=== PATIENT | male | born 1985 | race Caucasian/White ===

== ENCOUNTER 2018-08-25 14:45 | Observation (INO) ==
[2018-08-25] MEDS ORDERED: Isovue-370 500 ML INFUS..BTL IV ONE (15:35)
--- NOTE | 2018-08-25 15:41 | Emergency Department Note ---
Disposition Clinical Impression: Incidental lung nodule, greater than or equal to 8mm, Anemia Disposition: Admitted As Inpatient Condition: Fair SOB HPI - General Chief Complaint: ED Shortness of Breath/Dyspnea Stated Complaint: TYLER, Rib Pain Time Seen by Provider: 08/25/18 15:00 Source: patient Limitations: no limitations Vital Signs Reviewed: Yes - History of Present Illness Patient is a 33-year-old male with no significant reported past medical history who presents to the emergency department with chief complaint of shortness of breath with exertion and left-sided chest pain. He states his symptoms have been ongoing for approximately 3 weeks. He states that symptoms started with a cough which was productive of orange sputum and he also had one episode of hemoptysis. He was evaluated at the emergency department at that time and was found to have evidence of sinusitis on head CT. He said since then his cough has continued and is worse in the mornings when he wakes up. He says that the cough has caused rib pain on the left side. His chest pain is described as a cramping sensation worse with deep breathing and coughing. He states that it has radiated to his jaw one time and radiates to the inner aspect of his left arm as well. He has tried Tylenol for the chest pain which has provided mild relief. He states that he was seen as an outpatient after his last ED visit and was evaluated for "low blood count" as well as left lower extremity swelling. He states that he underwent d-dimer testing and ultrasound at [facility] last week but there was no evidence of DVT. Patient is a previous smoker, with a 16 year 1-1/2 pack per day smoking history. Patient quit smoking approximately 9 months ago as he began having shortness of breath with exertion. He denies any wheezing and denies any history of COPD. He denies any history of cancer, weight loss, recent surgery, or any recent periods of immobilization. He has never had any venous clots in the past. On review of systems he denies any fevers, abdominal pain, diarrhea, constipation, or urinary complaints. He does admit to subjective chills, diaphoresis, chronic headaches, palpitations, and shortness of breath with exertion. Pt Subjective Complaint: shortness of breath, cough, pain with inspiration Onset (ago): week(s) (3 weeks) Context: occurred during exertion Severity: moderate Consistency/Duration: constant Improves with: rest Worsens with: exertion, coughing, inspiration Associated symptoms: Reports: pain with inspiration, cough, sputum production, lower extremity pain, hemoptysis, diaphoresis Treatment prior to arrival: none Cough present: Yes Cough Description: Productive Cough Frequency: Intermittent Sputum production: Yes Sputum Amount: Small Sputum Color: Yellow, Blood Streaked - Related Data Home oxygen amount: none Home Medications Medication Instructions Recorded Confirmed Folic Acid 1 mg PO DAILY 02/22/17 08/25/18 Cyanocobalamin (Vitamin B-12) 1,000 mcg PO DAILY 08/23/17 08/25/18 [Vitamin B12] Omeprazole [PriLOSEC] 40 mg PO DAILY 08/25/18 08/25/18 Allergies Allergy/AdvReac Type Severity Reaction Status Date / Time ketorolac [From Toradol] Allergy Unknown Hives Verified 06/16/18 13:06 vancomycin Allergy Unknown Anaphylaxis Verified 06/16/18 13:06 acetaminophen [From Percocet] Allergy Swelling Verified 06/16/18 13:06 of Lip/Tongue/Throat bupropion [From Wellbutrin] Allergy Difficulty Verified 06/16/18 13:06 Breathing niacin Allergy Rash Verified 06/16/18 13:06 Oxycodone [From Percocet] Allergy Swelling Verified 06/16/18 13:06 of Lip/Tongue/Throat sulfamethoxazole Allergy Rash Verified 06/16/18 13:06 [From Bactrim] sumatriptan [From Imitrex] Allergy Headache Verified 06/16/18 13:06 tetracycline [Tetracycline] Allergy Rash Verified 06/16/18 13:06 trimethoprim [From Bactrim] Allergy Rash Verified 06/16/18 13:06 Review of Systems: As Per HPI Past Medical History - Past Medical History Medical history: Reports: GERD, hypertension, migraine Surgical history: Reports: non-contributory Psychiatric history: Reports: anxiety, PTSD, prior suicide attempt - Social History Smoking Status: Former smoker Smokeless Tobacco Status: No Alcohol use: Reports: none Drug use: Reports: none Physical Exam Constitutional: Thin, patient resting comfortably in bed in no acute distress. No active shortness of breath or audible wheezing. No current cough. Oropharynx: Oropharynx is clear without any lesions. There is no erythema or exudate present. No tonsillar swelling. Neck: Soft, nontender, no cervical lymphadenopathy Cardiovascular: Normal S1 and S2 heart sounds. No murmurs Respiratory: Clear to auscultation in all lung cramer. No wheezes, rales, or rhonchi. Chest: Tenderness to palpation overlying the aspect of the lower left ribs. Abdomen: Mild epigastric tenderness on deep palpation, otherwise soft, nontender, with active bowel sounds. Extremities: No evidence of pedal edema. Course Course Narrative: Reviewed labs, patient's hemoglobin has dropped to 9.4 from a previous value of 14.0 obtained in October 2017. All previous readings have been within normal range. Patient does admit to dark black stools for a 1 week period approximately 4 months ago. Since then he says his stools have been normal. He says his most recent stools have been light brown to orange in color. Denies any diarrhea, but states that at times his stool may be soft. Performed rectal exam and collected stool for occult blood testing. Normal rectal sphincter tone on examination with light brown stool extracted after digital rectal exam. Occult blood testing was negative. Obtained CT chest which showed evidence for a spiculated nodule in the right lower lobe. There is concern for Tate genic carcinoma and a PET-CT scan is recommended. Even patient's chest pain, shortness of breath, and CT findings will speak with hospitalist and recommend admission for observation and possible further consultation and workup. Spoke to patient, informed him of all lab results and imaging. Patient understands there is a nodule on the right lung that warrants further testing with PET-CT. to hospice regarding observation admission, hospitalist accepted the patient. Vital Signs Temperature 98.2 F 08/25/18 14:48 Pulse Rate 86 08/25/18 14:48 Respiratory Rate 18 08/25/18 14:48 Blood Pressure 146/93 08/25/18 14:48 O2 Sat by Pulse Oximetry 99 08/25/18 14:48 Temperature 98.2 F 08/25/18 14:48 Pulse Rate 60 08/25/18 18:20 Respiratory Rate 20 08/25/18 19:33 Blood Pressure 124/88 08/25/18 19:33 O2 Sat by Pulse Oximetry 100 08/25/18 18:20 Oxygen Delivery Oxygen Delivery Room Air Shortness of Breath/Dyspnea - MDM Narrative Medical decision making narrative: 33-year-old male presented to the ED with cough, hemoptysis, shortness of breath, and chest pain. On workup he was found to have microcytic anemia with a decrease in hemoglobin compared to prior labs from October 2017. Occult stool blood testing was negative. EKG and troponin were negative for any acute ST elevation or cardiac injury perspective. CTA chest showed a significant finding of a spiculated lung nodule in the right lower lobe which warrants further workup. Patient will be admitted to the hospital for observation and possible further workup - Lab Data Lab results reviewed: Yes I reviewed the patient's lab results. Result diagrams: 08/25/18 15:54 08/25/18 15:54 Lab Results 08/25/18 08/25/18 08/25/18 Range/Units 15:54 15:54 15:54 WBC 4.7 (4.3-11.1) K/mcL RBC 3.89 L (4.19-5.50) M/mcL Hgb 9.4 L (12.9-16.9) g/dL Hct 31.5 L (37.5-50.1) % MCV 81.0 L (83.0-100.0) fL MCH 24.2 L (28.0-33.3) pg MCHC 29.8 L (31.6-35.5) g/dL RDW 15.5 H (11.5-14.5) % Plt Count 154 (140-400) K/mcL MPV 12.4 (9.4-12.4) fL Immature Gran % 0.4 (0-4) % Seg Neutrophils % 57.7 % Lymphocytes % 30.6 % Monocytes % 9.0 % Eosinophils % 1.7 % Basophils % 0.6 % Neutrophils # 2.7 (1.6-8.9) K/mcL Lymphocytes # 1.4 (0.6-4.6) K/mcL Monocytes # 0.4 (0.0-1.3) K/mcL Eosinophils # 0.1 (0.0-0.6) K/mcL Basophils # 0.0 (0.0-0.2) K/mcL PT 11.9 (9.4-12.1) Seconds INR 1.1 Sodium 139 (136-145) mEq/L Potassium 4.1 (3.5-5.1) mEq/L Chloride 106 (98-107) mEq/L Carbon Dioxide 26 (23-29) mEq/L BUN 13 (6-20) mg/dL Creatinine 0.80 (0.70-1.30) mg/dL Est GFR ( Amer) > 60 (> 60) Est GFR (Non-Af Amer) > 60 (> 60) BUN/Creatinine Ratio 16 (6-26) Glucose 96 (70-105) mg/dL Calculated Osmolality 288 (280-300) Calcium 9.1 (8.6-10.3) mg/dL Total Bilirubin 0.4 (0.3-1.0) mg/dL Direct Bilirubin 0.1 (0.0-0.2) mg/dL Indirect Bilirubin 0.3 (0.0-1.2) mg/dL AST 21 (13-39) Units/L ALT 15 (7-52) Units/L Alkaline Phosphatase 72 (34-104) Units/L Troponin I < 0.03 (< 0.04) ng/mL Serum Total Protein 6.5 (6.4-8.9) g/dL Albumin 4.2 (3.5-5.7) g/dL Globulin 2.3 L (2.4-3.5) g/dL Albumin/Globulin Ratio 1.8 (1.1-2.2) Stool Occult Bld Scrn (Negative) Blood Type Antibody Screen 08/25/18 08/25/18 Range/Units 16:34 16:36 WBC (4.3-11.1) K/mcL RBC (4.19-5.50) M/mcL Hgb (12.9-16.9) g/dL Hct (37.5-50.1) % MCV (83.0-100.0) fL MCH (28.0-33.3) pg MCHC (31.6-35.5) g/dL RDW (11.5-14.5) % Plt Count (140-400) K/mcL MPV (9.4-12.4) fL Immature Gran % (0-4) % Seg Neutrophils % % Lymphocytes % % Monocytes % % Eosinophils % % Basophils % % Neutrophils # (1.6-8.9) K/mcL Lymphocytes # (0.6-4.6) K/mcL Monocytes # (0.0-1.3) K/mcL Eosinophils # (0.0-0.6) K/mcL Basophils # (0.0-0.2) K/mcL PT (9.4-12.1) Seconds INR Sodium (136-145) mEq/L Potassium (3.5-5.1) mEq/L Chloride (98-107) mEq/L Carbon Dioxide (23-29) mEq/L BUN (6-20) mg/dL Creatinine (0.70-1.30) mg/dL Est GFR ( Amer) (> 60) Est GFR (Non-Af Amer) (> 60) BUN/Creatinine Ratio (6-26) Glucose (70-105) mg/dL Calculated Osmolality (280-300) Calcium (8.6-10.3) mg/dL Total Bilirubin (0.3-1.0) mg/dL Direct Bilirubin (0.0-0.2) mg/dL Indirect Bilirubin (0.0-1.2) mg/dL AST (13-39) Units/L ALT (7-52) Units/L Alkaline Phosphatase (34-104) Units/L Troponin I (< 0.04) ng/mL Serum Total Protein (6.4-8.9) g/dL Albumin (3.5-5.7) g/dL Globulin (2.4-3.5) g/dL Albumin/Globulin Ratio (1.1-2.2) Stool Occult Bld Scrn Negative (Negative) Blood Type O POSITIVE Antibody Screen NEGATIVE - Radiology Data Radiology results reviewed: Yes I reviewed the patient's radiology results. - EKG Data EKG attestation: Yes I reviewed and interpreted this EKG. EKG results narrative: ECG shows sinus rhythm with a heart rate of 59. There is early R-wave progression. No gross ST elevations. EKG shows normal: Reports: sinus rhythm Rate: Reports: normal Rhythm: Reports: NSR S.B.A.R. - S.B.A.R. Situation: Demographics Background: Presenting Complaint, Relevant PMH, Meds, & Allergies Assessment: Vital Signs, Course and respsone to treatment, Exam Concerns, Pertinant Lab Results Recommendation: Recommendation based on pending studies, treatments, or consults S.B.A.RIsha Report Given to: Dr. Byron Junior Repor Time: 18:45 Attestation Statement - Attestation Attestation: I examined this patient and my medical decision-making was reviewed with the Resident Physician. I agree with the documented findings, disposition and treatment plan as described except to the extent set forth below. Findings consistent with spiculated chest mass. We will admit for oncological evaluation and definitive management of chest pain related to spiculated lung nodule.
[2018-08-25 16:16] LABS: Basophils % 0.6 %; Eosinophils # 0.1 K/mcL (0.0-0.6); Eosinophils % 1.7 %; Hematocrit 31.5 % (37.5-50.1); Hemoglobin 9.4 g/dL (12.9-16.9); Immature Granulocytes % 0.4 % (0-4); Lymphocytes # 1.4 K/mcL (0.6-4.6); Lymphocytes % 30.6 %; Mean Corpuscular HGB Conc 29.8 g/dL (31.6-35.5); Mean Corpuscular Hemoglobin 24.2 pg (28.0-33.3); Mean Platelet Volume 12.4 fL (9.4-12.4); Monocytes # 0.4 K/mcL (0.0-1.3); Neutrophils # 2.7 K/mcL (1.6-8.9); Platelet Count 154 K/mcL (140-400); Red Blood Count 3.89 M/mcL (4.19-5.50); Red Cell Distribution Width 15.5 % (11.5-14.5); Segmented Neutrophils % 57.7 %
[2018-08-25 16:33] LABS: BUN/Creatinine Ratio 16 (6-26); Blood Urea Nitrogen 13 mg/dL (6-20); Calcium 9.1 mg/dL (8.6-10.3); Carbon Dioxide 26 mEq/L (23-29); Chloride 106 mEq/L (98-107); Glucose 96 mg/dL (70-105); Osmolality,Calculated 288 (280-300); Potassium 4.1 mEq/L (3.5-5.1); Sodium 139 mEq/L (136-145); Troponin I < 0.03 ng/mL (< 0.04); eGFR For Non-African Americans > 60 (> 60)
[2018-08-25 16:43] LABS: Alanine Aminotransferase 15 Units/L (7-52); Albumin 4.2 g/dL (3.5-5.7); Albumin/Globulin Ratio 1.8 (1.1-2.2); Alkaline Phosphatase 72 Units/L (34-104); Aspartate Amino Transferase 21 Units/L (13-39); Bilirubin,Direct 0.1 mg/dL (0.0-0.2); Bilirubin,Indirect 0.3 mg/dL (0.0-1.2); Bilirubin,Total 0.4 mg/dL (0.3-1.0); Globulin 2.3 g/dL (2.4-3.5); Total Protein 6.5 g/dL (6.4-8.9)
[2018-08-25 16:51] LABS: INR 1.1; Prothrombin Time 11.9 Seconds (9.4-12.1)
[2018-08-25] MEDS ORDERED: Naloxone 0.4 MG/ML INJ IVP PRN (19:13)
--- NOTE | 2018-08-25 19:33 | Internal Med History&Physical ---
Date of Encounter: 08/25/18 Time of Encounter: 19:31 Internal Medicine - H&P: HPI Chief complaint: hemoptysis Admitted From: Emergency Dept Plans for Post Hospital Care: Home History of present illness: Mr. Holland is a 33 year old male with no significant reported past medical history who presents to the emergency department with chief complaint of shortness of breath with exertion and pleuritic chest pain. This has been going on for a few weeks or so. He reports hemoptysis. He was seen in our ED about 6 weeks ago and was diagnosed with sinusitis. He did describe what sounds like hemoptysis then. a CXR showed no acute process. His main concern coming into the ED was the shortness of breath but he was stable in the ED. He has been losing significant amount of weight but not sure how much but he can tell from his clothes. The patient had work up in the ED. Labs showed acute blood loss anemia with Hgb of 9.4 with previously around 14 earlier this year. Had a CTA chest which showed a spiculated lung nodule on the right. He denies any fevers, abdominal pain, diarrhea, constipation, or urinary complaints. He does admit to subjective chills, diaphoresis, chronic headaches, palpitations, and shortness of breath with exertion. Past Med Surg Social Fam HX - Past Medical History Medical history: GERD, hypertension, migraine Additional medical history: hx MRSA,heart defect irregular heartbeat,bilateral inguinal hernia,hypoglycemic,ibs,vitamin d deficiency Psychiatric history: anxiety, PTSD, prior suicide attempt - Past Surgical History Surgical History: non-contributory Additional surgical history: broken jaw repair,lazy eye surgery,bilateral inguinal hernia repair,right hand orif - Social History Smoking Status: Former smoker Smokeless Tobacco Status: No Alcohol use: none Drug use: none - Family History Maternal Grandmother Hx Family Cardiac Disorders: Yes (VT) Hx Family Endocrine Disorder: Yes (DM) Internal Medicine - H&P: Meds Folic Acid 1 mg PO DAILY 02/22/17 [History] Cyanocobalamin (Vitamin B-12) [Vitamin B12] 1,000 mcg PO DAILY 08/23/17 [History] Omeprazole [PriLOSEC] 40 mg PO DAILY 08/25/18 [History] Allergy/AdvReac Type Severity Reaction Status Date / Time ketorolac [From Toradol] Allergy Unknown Hives Verified 06/16/18 13:06 vancomycin Allergy Unknown Anaphylaxis Verified 06/16/18 13:06 acetaminophen [From Percocet] Allergy Swelling Verified 06/16/18 13:06 of Lip/Tongue/Throat bupropion [From Wellbutrin] Allergy Difficulty Verified 06/16/18 13:06 Breathing niacin Allergy Rash Verified 06/16/18 13:06 Oxycodone [From Percocet] Allergy Swelling Verified 06/16/18 13:06 of Lip/Tongue/Throat sulfamethoxazole Allergy Rash Verified 06/16/18 13:06 [From Bactrim] sumatriptan [From Imitrex] Allergy Headache Verified 06/16/18 13:06 tetracycline [Tetracycline] Allergy Rash Verified 06/16/18 13:06 trimethoprim [From Bactrim] Allergy Rash Verified 06/16/18 13:06 All Systems PM: A 10-system review of systems was performed and is negative for pertinent findings except as documented above in the HPI. Review of systems: All systems reviewed are negative except for as mentioned above - Constitutional Vitals: Temp Pulse Resp BP Pulse Ox 98.2 F 68 22 122/85 100 08/25/18 14:48 08/25/18 16:02 08/25/18 16:02 08/25/18 16:02 08/25/18 16:02 Exam: GEN: NAD HEENT: AT, NC, No cyanosis, oral mucosa is moist, No JVD Lymphatics: No lymphadenoapthy Eyes: Extrocular muscles intact, anicteric CVS:RRR. S1, S2, No m/r/g RESP: CTAB ABD: Soft, NT, ND, +BS EXT: No edema, No rashes, 2+ DP NEURO: Nonfocal, CN II-XII intact, No focal motor or sensory deficits Psych: Cooperative, Not anxious or depressed Internal Med - H&P Results - Labs CBC & Chem 7: 08/25/18 15:54 08/25/18 15:54 Labs: Short CBC 08/25/18 Range/Units 15:54 WBC 4.7 (4.3-11.1) K/mcL Hgb 9.4 L (12.9-16.9) g/dL Hct 31.5 L (37.5-50.1) % Plt Count 154 (140-400) K/mcL Neutrophils # 2.7 (1.6-8.9) K/mcL BMP 08/25/18 15:54 Sodium 139 Potassium 4.1 Chloride 106 Carbon Dioxide 26 BUN 13 Creatinine 0.80 Glucose 96 Calcium 9.1 Cardiac Enzymes 08/25/18 Range/Units 15:54 Troponin I < 0.03 (< 0.04) ng/mL Liver Function 08/25/18 Range/Units 15:54 Total Bilirubin 0.4 (0.3-1.0) mg/dL Direct Bilirubin 0.1 (0.0-0.2) mg/dL AST 21 (13-39) Units/L ALT 15 (7-52) Units/L Alkaline Phosphatase 72 (34-104) Units/L Albumin 4.2 (3.5-5.7) g/dL - Impressions ITS Impressions Chest CTA 08/25/18 15:35 IMPRESSION: 1. Indeterminate spiculated nodule lateral basal segment right lower lobe; primary bronchogenic carcinoma must be considered and PET-CT correlation is recommended. 2. Nonspecific ground-glass nodules right middle lobe and lingula left upper lobe must be followed with unenhanced CT in 6-12 months to ensure stability. 3. No pulmonary embolism. 4. Benign pericardial cyst is noted. D/ / Jacques Duarte / Jacques Duarte Interpreting Provider: Jacques Duarte - Assessment and plan (1) Lung nodule Current Visit: Yes Status: Acute Assessment and plan: Spiculated and suspicious for a malignancy. Has significant smoking history. Will consult pulm. NPO after midnight. (2) Hemoptysis Current Visit: Yes Status: Acute Assessment and plan: likely from the spiculated lung nodule. Will monitor. (3) Acute blood loss anemia Current Visit: Yes Status: Acute Assessment and plan: FOBT neg in ED. likely blood loss from hemoptysis. Hgb 9.4. was 14 in October. Samuel check iron studies. (4) DVT prophylaxis Current Visit: Yes Status: Acute Assessment and plan: scds - Time Spent With Patient Total time spent is greater than 50% in coordination of care (as documented) at patient's floor/unit and/or counseling patient:
[2018-08-25] MEDS: Acetaminophen 325 MG TABLET PO PRN (21:58)
[2018-08-26 03:43] LABS: Basophils % 0.8 %; Eosinophils # 0.1 K/mcL (0.0-0.6); Eosinophils % 3.2 %; Hematocrit 30.9 % (37.5-50.1); Hemoglobin 9.4 g/dL (12.9-16.9); Immature Granulocytes % 0.3 % (0-4); Lymphocytes # 1.4 K/mcL (0.6-4.6); Lymphocytes % 36.7 %; Mean Corpuscular HGB Conc 30.4 g/dL (31.6-35.5); Mean Corpuscular Hemoglobin 24.3 pg (28.0-33.3); Mean Corpuscular Volume 79.8 fL (83.0-100.0); Mean Platelet Volume 12.2 fL (9.4-12.4); Monocytes # 0.4 K/mcL (0.0-1.3); Monocytes % 11.7 %; Neutrophils # 1.8 K/mcL (1.6-8.9); Platelet Count 153 K/mcL (140-400); Red Blood Count 3.87 M/mcL (4.19-5.50); Red Cell Distribution Width 15.7 % (11.5-14.5); Segmented Neutrophils % 47.3 %
[2018-08-26 03:59] LABS: BUN/Creatinine Ratio 18 (6-26); Blood Urea Nitrogen 14 mg/dL (6-20); Calcium 8.9 mg/dL (8.6-10.3); Carbon Dioxide 27 mEq/L (23-29); Chloride 107 mEq/L (98-107); Glucose 100 mg/dL (70-105); Osmolality,Calculated 287 (280-300); Sodium 138 mEq/L (136-145); eGFR For Non-African Americans > 60 (> 60)
[2018-08-26 04:01] LABS: % Iron Saturation 3 % (20-55); Iron 17 mcg/dL (65-175); Transferrin 361 mg/dL (203-362)
[2018-08-26 04:25] LABS: Folate 15.6 ng/mL (3.0-16.0)
[2018-08-26 04:28] LABS: Ferritin < 8 ng/mL (20-250)
--- NOTE | 2018-08-26 06:30 | Pulmonology Consult Note ---
Date of Encounter: 08/26/18 Time of Encounter: 06:29 Assessment and Plan (1) Multiple pulmonary nodules Current Visit: Yes Status: Acute Although the patient is a former smoker I doubt that this represents a malignant process. It is much more likely this is a infectious etiology or inflammatory such as an undiagnosed connective tissue disease. I recommend treating with antimicrobials such as Levaquin for 7 days Patient will need pulmonary follow-up in 2-4 weeks from the time of discharge was a repeat CT scan in 4-6 weeks At that time we will determine if nodule is growing regarding a CT-guided biopsy Bronchoscopy would add little diagnostic utility in this situation outside of looking for an infectious etiology and for this reason would recommend holding off on bronchoscopy patient should have blood cultures and sputum cultures drawn as well as a respiratory infection panel I will start inflammatory workup for connective tissue diseases in the hospital (2) Asthma with acute exacerbation Current Visit: Yes Status: Acute Start Symbicort 160/4.52 puffs twice a day She be discharged with her rescue inhaler Recommend 5 day course of prednisone 40 mg by mouth We will check IgE level Patient pulmonary follow-up for optimization of obstructive lung disease which may be complicated by chronic bronchitis Qualifiers: Asthma severity: unspecified severity Qualified Code(s): J45.901 - Unspecified asthma with (acute) exacerbation (3) Hemoptysis Current Visit: Yes Status: Acute This was one episode of blank hemoptysis without subsequent incident. Suspect this is related to infectious etiology with bronchitis I expressed to the patient that he coughs up another episode of teaspoon of bright red blood or more he should go to the emergency room at once patient expressed understanding and agreement (4) Chronic sinusitis Current Visit: Yes Status: Acute Patient will need to be prescribed fluticasone 1-2 sprays in each nostril daily and should have scheduled saline rinse will need to have outpatient follow-up with consideration of ENT evaluation Qualifiers: Sinusitis location: unspecified location Qualified Code(s): J32.9 - Chronic sinusitis, unspecified (5) Anemia Current Visit: Yes Status: Acute Workup per primary team this is not related to her lung etiology as far as I can tell at this time certainly not the amount of the blood that he coughed up 1 month ago Pulmonary will sign off he will need outpatient pulmonary follow-up either here in [place] or in [place] where we see patients thank you for this consultation please call with any questions Qualifiers: Qualified Code(s): D64.9 - Anemia, unspecified History of Present Illness Consult date: 08/26/18 Requesting physician: Radha Graff Reason for consult: abnormal CXR/CT Chief complaint: Chest pain History of present illness: This is a very pleasant 33-year-old gentleman with a past medical history of asthma and tobacco abuse and chronic sinusitis who presented to the emergency room yesterday after expressing about 24-48 hours of pleuritic type chest pain predominantly on the left. This is complicated over last month by increased cough with sputum production. He states that about 1 month ago he coughed up one episode of bright red blood this was about half a teaspoon since that he is not known his any other blank hemoptysis. He has noticed increase sputum produc tion however sometimes this is orange tint. He was seen within the last month in the emergency room as well for acute sinusitis and treated with Augmentin. He states that over the last 24 hours he has felt febrile but has not had objective fever he also has felt some cold sweats. Denies any sick contacts. He smoked about a pack to a pack and a half a day since early adolescence but quit 9 months ago. 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 He was also noted to have a hemoglobin of 9 which was down from baseline of 14 he has endorsed some dark stools and some intermittent constipation but denies any bleeding from the gums coughing up blood outside of what was mentioned vomiting blood blood in the urine etc. he does endorse some pain in his hands and primarily in the joints of the fingers when he wakes in the morning this is been going on over the last 2 years and sometimes it is associated with redness. In the emergency room CTA was performed which is notable for multiple pulmonary nodules on the right the largest being about a centimeter pulmonary was consulted for further evaluation Past Med Surg Social Fam HX - Past Medical History Medical history: GERD, hypertension, migraine Additional medical history: hx MRSA,heart defect irregular heartbeat,bilateral inguinal hernia,hypoglycemic,ibs,vitamin d deficiency Psychiatric history: anxiety, PTSD, prior suicide attempt - Past Surgical History Surgical History: non-contributory Additional surgical history: broken jaw repair,lazy eye surgery,bilateral inguinal hernia repair,right hand orif - Social History Smoking Status: Former smoker Smokeless Tobacco Status: No Alcohol use: none Drug use: none - Family History Maternal Grandmother Hx Family Cardiac Disorders: Yes ([place]) Hx Family Endocrine Disorder: Yes (DM) Medications and Allergies Folic Acid 1 mg PO DAILY 02/22/17 [History] Cyanocobalamin (Vitamin B-12) [Vitamin B12] 1,000 mcg PO DAILY 08/23/17 [History] Omeprazole [PriLOSEC] 40 mg PO DAILY 08/25/18 [History] Allergy/AdvReac Type Severity Reaction Status Date / Time ketorolac [From Toradol] Allergy Unknown Hives Verified 06/16/18 13:06 vancomycin Allergy Unknown Anaphylaxis Verified 06/16/18 13:06 acetaminophen [From Percocet] Allergy Swelling Verified 06/16/18 13:06 of Lip/Tongue/Throat bupropion [From Wellbutrin] Allergy Difficulty Verified 06/16/18 13:06 Breathing niacin Allergy Rash Verified 06/16/18 13:06 Oxycodone [From Percocet] Allergy Swelling Verified 06/16/18 13:06 of Lip/Tongue/Throat sulfamethoxazole Allergy Rash Verified 06/16/18 13:06 [From Bactrim] sumatriptan [From Imitrex] Allergy Headache Verified 06/16/18 13:06 tetracycline [Tetracycline] Allergy Rash Verified 06/16/18 13:06 trimethoprim [From Bactrim] Allergy Rash Verified 06/16/18 13:06 All Systems: The remainder of the systems were reviewed and are negative Physical Examination Vital Signs: Vital Signs, Last 4 Hours Temp Pulse Resp BP Pulse Ox 08/26/18 04:21 97.7 F 69 16 108/66 99 General appearance: no acute distress Eyes: nonicteric ENT: oropharynx moist Neck: supple Effort: normal Auscultation: bilateral: rhonchi Cardiovascular: regular rate and rhythm Gastrointestinal: normoactive bowel sounds Integumentary: normal Extremities: no cyanosis, no edema, no clubbing Musculoskeletal: no deformities normal mental status, non-focal exam mood appropriate Results - Laboratory Findings CBC and BMP: 08/26/18 03:26 08/26/18 03:26 PT/INR, D-dimer PT 11.9 Seconds (9.4-12.1) 08/25/18 15:54 Abnormal lab findings: Abnormal lab results WBC 3.8 K/mcL (4.3-11.1) L 08/26/18 03:26 RBC 3.87 M/mcL (4.19-5.50) L 08/26/18 03:26 Hgb 9.4 g/dL (12.9-16.9) L 08/26/18 03:26 Hct 30.9 % (37.5-50.1) L 08/26/18 03:26 MCV 79.8 fL (83.0-100.0) L 08/26/18 03:26 MCH 24.3 pg (28.0-33.3) L 08/26/18 03:26 MCHC 30.4 g/dL (31.6-35.5) L 08/26/18 03:26 RDW 15.7 % (11.5-14.5) H 08/26/18 03:26 Iron 17 mcg/dL (65-175) L 08/26/18 03:26 % Saturation 3 % (20-55) L 08/26/18 03:26 Ferritin < 8 ng/mL (20-250) L 08/26/18 03:26 Globulin 2.3 g/dL (2.4-3.5) L 08/25/18 15:54 - Diagnostic Findings Chest x-ray: report reviewed, image reviewed CT scan - chest: report reviewed, image reviewed - Clinical Findings Intake & Output: Intake & Output 08/25/18 08/25/18 08/26/18 15:59 23:59 07:59 Weight 61.598 kg 59.4 kg 60.8 kg Consult Discharge Plan - Plan Referrals: NONE,PCP [Primary Care Provider] -
[2018-08-26] MEDS ORDERED: Saline Nasal Spray 44 ML BOTTLE NS PRN (07:34)
[2018-08-26] MEDS: Acetaminophen 325 MG TABLET PO PRN (08:13)
[2018-08-26] MEDS ORDERED: Folic Acid 1 MG TABLET PO SCH (09:00)
[2018-08-26] MEDS ORDERED: Cyanocobalamin (B-12) 1,000 MCG TABLET PO SCH (09:00)
[2018-08-26] MEDS ORDERED: Fluticasone Propionate Nasal 50 MCG/SPRAY BOTTLE NS SCH (09:00)
[2018-08-26] MEDS ORDERED: levoFLOXacin 750 MG TABLET PO SCH (09:45)
[2018-08-26] MEDS ORDERED: predniSONE 20 MG TABLET PO SCH (09:45)
[2018-08-26] MEDS ORDERED: Budesonide/Formoterol 160/4.5 1 PUFF INH IH SCH (10:00)
[2018-08-26 11:40] VITALS: BP 112/69
--- NOTE | 2018-08-26 12:03 | Discharge Summary ---
- NOTES TO OUTPATIENT PROVIDER Notes to Outpatient Provider: Was seen by pulmonology will need a follow-up in 4 weeks as well as outpatient CT of chest 4-6 weeks-regarding multiple pulmonary nodules-was discharged home with seven-day course of Levaquin as well as a steroid burst and Symbicort. Anemia-hemoglobin was 9.4 has been stable for 2 days occult stool was negative anemia workup does show decreased iron which we will initiate on iron supplements-will follow up with hematology as outpatient for possible iron infusions and further workup Orders not resulted at time of discharge: Pending orders 08/26/18 08:01 BRISA IgG GI rflx IFA Routine CCP IgG Routine Immunoglobulin E Routine MPO/PR3 (ANCA) Antibodies Routine 08/26/18 09:32 Culture,Sputum with Gram Stain [RM] Routine 08/26/18 09:40 Respiratory Infection Panel [MOLMIC] Routine 08/26/18 09:51 Culture,Blood [BC] Routine Date of Encounter: 08/26/18 Time of Encounter: 11:54 - Discharge Diagnosis (1) Hemoptysis Priority: Secondary Status: Acute (2) Acute blood loss anemia Priority: Secondary Status: Acute (3) Lung nodule Priority: Primary Status: Acute Hospital course: Mr. Holland is a 33 year old male past medical history of asthma and tobacco abuse chronic sinusitis GERD and hypertension. Presented to [facility] ED after dispensing 24-48 hours of pleuritic type chest pain occurring side. He also has been experiencing a cough with sputum production for the past month. About one month ago he did have an episode of hemoptysis he did have a CTA which did reveal multiple pulmonary nodules with the largest being on his right side measuring approximately 1 cm. He also has been experiencing weight loss that has been occurring over the past several months-he states over the past 3 months he has lost proximal 15 pounds. He was seen by hematology oncology proximally year ago for leukopenia and thrombocytopenia at that time he was tested for HIV as well as hepatitis and which was all negative. He did have anemia on presentation occult stool was negative anemia workup that showed low iron which we will initiate on oral iron supplements. We will have patient follow-up with hematology oncology as outpatient for further workup and possible iron infusions. Pulmonology did see the patient during admission recommending seven- day course of antibiotics as well as steroid bursts. Patient will be discharged home on Levaquin as well as five-day course of prednisone and Symbicort. Patient will follow up with pulmonary in 4 weeks and will also have a outpatient CT of chest in 46 weeks he will be evaluated I pulmonology at that time for possible CT-guided biopsy. Currently patient denies any chest pain or shortness of breath. I advised the patient to follow-up with pulmonology and hematology as well as primary care provider he was established with the residency clinic he verbalized understanding-advised patient to continue with ensure oral supplements He is hemodynamically stable and is ready for discharge. Discharge discussed with: patient - Time Spent with Patient Total time spent providing and/or coordinating discharge services: - Discharge Medications Prescriptions: Budesonide/Formoterol 160/4.5 [Symbicort 160/4.5] 2 puff IH BIDR #1 inh Ferrous Sulfate [Iron] 325 mg PO BID #60 tablet Fluticasone Propionate Nasal [Flonase] 50 mcg NS DAILY #1 bottle levoFLOXacin [Levaquin] 750 mg PO DAILY #6 tablet predniSONE [PredniSONE] 40 mg PO DAILY 4 Days tablet Saline Nasal Vermilion [Power Nasal Vermilion] 2 spray NS Q2H PRN #1 bottle PRN Reason: Congestion Home Medications: Folic Acid 1 mg PO DAILY 02/22/17 [History] Cyanocobalamin (Vitamin B-12) [Vitamin B12] 1,000 mcg PO DAILY 08/23/17 [H istory] Omeprazole [PriLOSEC] 40 mg PO DAILY 08/25/18 [History] Budesonide/Formoterol 160/4.5 [Symbicort 160/4.5] 2 puff IH BIDR #1 inh 08/26/18 [Rx] Ferrous Sulfate [Iron] 325 mg PO BID #60 tablet 08/26/18 [Rx] Fluticasone Propionate Nasal [Flonase] 50 mcg NS DAILY #1 bottle 08/26/18 [Rx] Saline Nasal Vermilion [Power Nasal Vermilion] 2 spray NS Q2H PRN #1 bottle 08/26/18 [Rx] levoFLOXacin [Levaquin] 750 mg PO DAILY #6 tablet 08/26/18 [Rx] predniSONE [PredniSONE] 40 mg PO DAILY 4 Days tablet 08/26/18 [Rx] Allergies/Adverse Reactions: Allergy/AdvReac Type Severity Reaction Status Date / Time ketorolac [From Toradol] Allergy Unknown Hives Verified 06/16/18 13:06 vancomycin Allergy Unknown Anaphylaxis Verified 06/16/18 13:06 acetaminophen [From Percocet] Allergy Swelling Verified 06/16/18 13:06 of Lip/Tongue/Throat bupropion [From Wellbutrin] Allergy Difficulty Verified 06/16/18 13:06 Breathing niacin Allergy Rash Verified 06/16/18 13:06 Oxycodone [From Percocet] Allergy Swelling Verified 06/16/18 13:06 of Lip/Tongue/Throat sulfamethoxazole Allergy Rash Verified 06/16/18 13:06 [From Bactrim] sumatriptan [From Imitrex] Allergy Headache Verified 06/16/18 13:06 tetracycline [Tetracycline] Allergy Rash Verified 06/16/18 13:06 trimethoprim [From Bactrim] Allergy Rash Verified 06/16/18 13:06 Date of admission: 08/25/18 18:54 Primary care physician: PCP NONE Consults: 08/25/18 19:12 Consult to Pulmonology [CONS] Routine Consulting Provider: [facility] [place] Reason for Consult: spiculated lung lesion Call Completed: No Discharging clinician: Tomeka Morris Anticipated date of discharge: 08/26/18 - Constitutional Vitals: Temp Pulse Resp BP Pulse Ox 97.9 F 58 17 112/69 99 08/26/18 11:38 08/26/18 11:38 08/26/18 11:38 08/26/18 11:38 08/26/18 11:38 General appearance: Present: A&O X 3 Exam: . - Head Head exam: Present: atraumatic, normocephalic - Eye Eye exam: Present: PERRL, conjuntiva pink, sclera anicteric Pupils: Present: PERRL - Neck Neck exam general surgery: Present: supple, trachea midline. Absent: lymphadenopathy - Respiratory Respiratory exam: Present: rhonchi. Absent: accessory muscle use, rales, wheezes - Cardiovascular Cardiovascular exam: Present: RRR, +S1, +S2. Absent: diastolic murmur, gallop, rubs, systolic murmur - GI/Abdominal GI/Abdominal exam: Present: normal bowel sounds, soft, no peritoneal signs. Absent: distended, tenderness - Extremities Exam Extremities exam: Present: warm, radial pulses palpable and symmetrical. Absent: calf tenderness, cyanotic, pedal edema - Neurological Exam Neurological exam: Present: CN II-XII intact, oriented X3, no focal deficits. Absent: pronater drift, facial droop, speech deficit - Patient Status Disposition: Home, Self-Care Condition: Fair Functional capacity at discharge: independent ambulation Overall status at discharge: patient is back to baseline - Discharge Instructions Follow Up With: NONE,PCP [Primary Care Provider] - - Diet and Activity Activity: increase activity as tolerated Diet: advance to your usual diet
[2018-08-26 12:43] LABS: Adenovirus Not Detected (Not Detect); Coronavirus 229E Not Detected (Not Detect)
[2018-08-26 12:44] LABS: Bordetella Pertussis Not Detected (Not Detect); Chlamydophila pneumoniae Not Detected (Not Detect); Coronavirus HKU1 Not Detected (Not Detect); Coronavirus NL63 Not Detected (Not Detect); Coronavirus OC43 Not Detected (Not Detect); Human Metapneumovirus Not Detected (Not Detect); Human Rhinovirus/Enterovirus Not Detected (Not Detect); Influenza A Subtype 2009 H1 Not Detected (Not Detect); Influenza A Untypeable Not Detected (Not Detect); Influenza B Not Detected (Not Detect); Mycoplasma pneumoniae Not Detected (Not Detect); Parainfluenza Virus 1 Not Detected (Not Detect); Parainfluenza Virus 2 Not Detected (Not Detect); Parainfluenza Virus 3 Not Detected (Not Detect); Parainfluenza Virus 4 Not Detected (Not Detect); Respiratory Syncytial Virus Not Detected (Not Detect)
--- NOTE | 2018-08-26 17:07 | Electrocardiograph Report ---
[place] [id number] Test Date: 2018-08-25 Pat Name: Sukh Holland Department: EXAM[facility]4 Room: 3B Gender: M Digital Production Artist: : [id number] Requested By: Demetri Ngo Order Number: [id number] Reading MD: Rachel Gibson Measurements Intervals [place] Rate: 59 P: 78 [place]: 105 QRS: 84 QRSD: 81 T: 77 QT: 383 QTc: 380 Interpretive Statements Sinus rhythm Short [place] interval RSR' in V1 or V2, probably normal variant Electronically Signed On 08-26-2018 17:06:20 EST by Rachel Gibson
[2018-08-29 10:11] LABS: ANA IgG by ELISA NONE DETECTED (None Detected); Myeloperoxidase Ab 0 AU/mL (0-19); Serine Protease-3 Antibody 2 AU/mL (0-19)
== END 2018-08-26 14:31 | disposition home or self-care (01) ==
LOC: EMEROOARM 14:45 → 3BNU 14:45
PROVIDERS: ADMIT Internal Medicine; ATTEND Internal Medicine